=== PATIENT | female | born 2000 | race African-American/Black ===

== ENCOUNTER 2018-01-28 08:03 | Emergency (ER) | payer SELFPAY ==
[2018-01-28 08:06] VITALS: BP 130/63; PULSE 99; RESP 16; TEMP 98.2; O2SAT 99
[2018-01-28] MEDS ORDERED: AMOX500C PO (08:46)
--- NOTE | 2018-01-28 08:46 | PD ---
HPI Chief Complaint: Cold / Flu Symptoms Time Seen by Provider: 08:34 Travel History International Travel<30 days: No Contact w/Intl Traveler<30days: No Traveled to known affect area: No History of Present Illness HPI 17-year-old female presents to the emergency department with complaint of cough , stuffy nose, sore throat, right ear pain 4 days. Reports subjective fevers. Denies shortness of breath or wheezing. Denies vomiting. Her roommates have been sick with similar symptoms. She has tried taking Mucinex, lemon honey, drinking tea, TheraFlu for symptom management. Symptoms are mild in severity. No known relieving or aggravating symptoms. No known allergies. Primary care provider is in [place]. History of asthma. Says her asthma has not given her any problems for many years and denies symptoms currently. Has no other medical complaints. No other modifying factors or associated signs and symptoms. PFSH Past Medical History ?: Not LMP: DEPO INJECTION Social History Tobacco Use: No Allergies-Medications (Allergen,Severity, Reaction): Coded Allergies: No Known Allergies (Unverified , 01/28/18) Reported Meds & Prescriptions Reported Meds & Active Scripts Active Amoxicillin 500 Mg Cap 500 Mg PO BID 10 Days Review of Systems Except as stated in HPI: all other systems reviewed are Neg Physical Exam Narrative GENERAL: Well-nourished, well-developed black female patient, in no acute distress; afebrile, nontoxic-appearing SKIN: Warm and dry. No rash. HEAD: Atraumatic. Normocephalic. EYES: Pupils equal and round. No scleral icterus. No injection or drainage. EARS: Bilateral pinnae and external canals appear within normal limits. Right tympanic membrane with erythema, loss of landmarks, and with dullness; without perforation. ENT: Mucosa pink and moist. Oral Pharynx without erythema; without edema or exudates. No uvular edema. No uvular, palatal, or tonsillar deviation. Airway patent. NECK: Trachea midline. No lymphadenopathy. CARDIOVASCULAR: Regular rate and rhythm. No murmur appreciated. RESPIRATORY: No accessory muscle use. Clear to auscultation. Breath sounds equal bilaterally. GASTROINTESTINAL: Obese. MUSCULOSKELETAL: No obvious deformities. No clubbing. No cyanosis. No edema. NEUROLOGICAL: Awake and alert. Oriented 3. No obvious cranial nerve deficits. Motor grossly within normal limits. Normal speech. Moves all extremities. 5/5 strength to all extremities. PSYCHIATRIC: Appropriate mood and affect; insight and judgment normal. Data Data Last Documented VS Vital Signs Date Time Temp Pulse Resp B/P (MAP) Pulse Ox O2 Delivery O2 Flow Rate FiO2 01/28/18 08:06 98.2 99 16 130/63 (85) 99 Orders Orders Ed Discharge Order (01/28/18 08:46) MDM Medical Decision Making Medical Screen Exam Complete: Yes Emergency Medical Condition: Yes Medical Record Reviewed: Yes Differential Diagnosis Upper respiratory infection, sinusitis, otitis media, asthma exacerbation, bronchitis, influenza Narrative Course 17-year-old female physical exam consistent with right otitis media. Cough and cold symptoms 4 days. Patient is afebrile nontoxic pain. Reports subjective fever. No vomiting. Amoxicillin prescribed for home. Instructed patient to follow up with primary care provider. Patient verbalizes understanding and agreement with treatment plan. Patient is medically cleared and stable for discharge. Discussed reasons to return to the emergency department. Patient agrees with treatment plan. The patients vital signs are stable and the patient is stable for outpatient follow-up and treatment. Patient discharged home, stable and in no acute distress. Diagnosis Primary Impression: Right otitis media Qualified Codes: H66.91 - Otitis media, unspecified, right ear Referrals: [facility] Primary Care Physician Patient Instructions: General Instructions, Safe Use of Cough and Cold Medicines (ED), Serous Otitis Media (ED) Departure Forms: School Release, Return to School Date: Feb 01, 2018 Tests/Procedures Additional Instructions: Take antibiotics as prescribed and complete full course Ibuprofen or Tylenol as directed and as needed to reduce pain and fever [id number] antihistamines or decongestants as directed and as needed for symptom management Avoid getting water in the ears Do not put anything in the ears; including Q-tips Follow-up with primary care provider Return to the emergency department immediately with worsening of symptoms Med/Other Pt SpecificInfo: Prescription(s) given Scripts Amoxicillin (Amoxicillin) 500 Mg Cap 500 MG PO BID for Infection for 10 Days, #20 CAP 0 Refills Prov: Mariajose Levy 01/28/18 Disposition: 01 DISCHARGE HOME Condition: Stable Mariajose Levy Jan 28, 2018 08:46
== END 2018-01-28 09:06 | disposition home or self-care (01) ==
LOC: NEPD 08:03
DX: H66.91 Otitis media, unspecified, right ear (principal); J45.909 Unspecified asthma, uncomplicated
CPT/HCPCS: 99283